=== PATIENT | female | born 1955 | race Caucasian/White ===

== ENCOUNTER 2016-11-19 10:44 | Inpatient (IN) | payer OTHER ==
[~2016-11-19] VITALS: Ht 157.5 cm; Wt 64.0 kg
[~2016-11-19 10:44] MED LIST: AUG500 GTB; BENA40TA54 PO; CALC60OI3 TOP; CLON-379 PO; PRED20TA PO; TRAM1TAB6 PO; TRAM50TA2 PO
--- NOTE | 2016-11-19 11:14 | RADRPT ---
PROCEDURE: Chest x-ray CLINICAL INDICATION: Chest pain TECHNIQUE: Chest single view COMPARISON: 03/05/2013 FINDINGS: The heart is normal in size. The pulmonary vessels are normal in caliber. The lungs are clear. Th e costophrenic angles are sharp. The visualized bony thorax is unremarkable. IMPRESSION: No acute cardiopulmonary disease. RPTAT: HH .Filiberto Schaeffer MD, Date Time Electronically viewed and signed by .Filiberto Schaeffer MD, on 11/19/2016 11:13 .W/
[2016-11-19 11:46] LABS: BASOPHIL # 0.1 10^3/ul (0.0-0.1); BASOPHILS % 0.5 % (0.0-2.0); EOSINOPHILS # 0.1 10^3/ul (0.0-0.5); EOSINOPHILS % 1.3 % (0.0-7.0); HEMATOCRIT 38.4 % (37.0-47.0); LYMPHOCYTES # 1.6 10^3/ul (0.8-2.9); LYMPHOCYTES % 16.4 % (15.0-51.0); MEAN CORPUSCULAR HEMOGLOBIN 26.7 pg (29.0-33.0); MEAN CORPUSCULAR HGB CONC 31.3 g/dl (32.0-37.0); MEAN CORPUSCULAR VOLUME 85.3 fl (82.0-101.0); MEAN PLATELET VOLUME 10.8 fl (7.4-10.4); MONOCYTE # 0.5 10^3/ul (0.3-0.9); MONOCYTES % 4.9 % (0.0-11.0); NEUTROPHIL # 7.6 10^3/ul (1.6-7.5); NEUTROPHILS % 76.6 % (39.0-77.0); PLATELET COUNT 414 10^3/UL (140-415); RED CELL DISTRIBUTION WIDTH 14.7 % (11.5-14.5)
[2016-11-19 11:49] LABS: ANION GAP 11 (8-16); BLOOD UREA NITROGEN 20 mg/dl (7-20); CALCIUM 9.3 mg/dl (8.4-10.2); CARBON DIOXIDE 27 mmol/L (21-31); CHLORIDE 107 mmol/L (97-110); CREATININE 0.96 mg/dl (0.44-1.00); GLUCOSE 129 mg/dl (70-220); POTASSIUM 3.1 mmol/L (3.5-5.1); SODIUM 142 mmol/L (135-144)
[2016-11-19 12:06] LABS: TROPONIN-I < 0.012 ng/ml (0.00-0.12)
[2016-11-19] MEDS ORDERED: ATOR20TA38 PO (12:17)
[2016-11-19] MEDS ORDERED: AMLO5TAB4 PO (12:17)
--- NOTE | 2016-11-19 12:26 | ERA ---
ER Documentation Chief Complaint Date/Time DATE: 11/19/16 TIME: 12:09 Chief Complaint Pt with B leg pain, swelling and redness X 2 days CP since this morning. HPI This is a 61-year-old female with a history of psoriasis, previous stroke with residual right-sided deficits and dysarthria, previous heart attack, hypertension who is presenting with 3 days of fatigue, intermittent chest discomfort with progressive worsening redness, warmth and swelling of her lower extremities bilaterally from the foot to the knee. The patient denies feeling sick recently. The patient denies fever or chills. The patient has had no headache or vision changes. The patient denies lightheadedness or dizziness. She denies nausea or vomiting. The patient has had no chest pain or shortness of breath trouble breathing. The patient denies abdominal pain or changes to bowel movements or urination. The patient has had no new weakness or numbness or tingling to the face or extremities, but she has chronic right-sided hemiplegia. ROS All systems reviewed and are negative except as per history of present illness. Medications Home Meds Reported Medications Atorvastatin Calcium* (Atorvastatin Calcium*) 20 Mg Tablet, 20 MG PO QHS, #30 TAB 11/19/16 Amlodipine Besylate* (Norvasc*) 5 Mg Tablet, 5 MG PO DAILY, TAB 11/19/16 Discontinued Reported Medications Tramadol Hcl/Acetaminophen (Tramadol Hcl/Acetaminophen) 1 Tab Tablet, 1 TAB PO TID 50MG PO TID 03/09/13 Amoxicillin/Clavulanate K (Augmentin) 500 Mg Tab, 500 MG GTB QID, #30 03/09/13 Clonidine Hcl* (Clonidine Hcl*) 0.1 Mg Tab, 0.1 MG PO Q6 Y FOR SBP >150 03/09/13 Benazepril Hcl* (Lotensin*) 40 Mg Tablet, 40 MG PO DAILY 03/09/13 [none] No Conflict Check 09/05/12 Discontinued Scripts Tramadol HCl (Tramadol HCl) 50 Mg Tablet, 50 MG PO Q4 Y for PAIN, #20 TAB Prov:ANA JETER 07/28/15 Calcipotriene* (Calcipotriene*) 0.005%-60 Gm Oint...g., 1 APPLIC TOP BID for 7 Days, TUB Prov:ANA JETER 07/28/15 Prednisone* (Prednisone*) 20 Mg Tab, 40 MG PO DAILY for 4 Days, TAB Prov:ANA JETER 07/28/15 Allergies Allergies: Coded Allergies: No Known Allergies (Verified Allergy, Mild, 11/19/16) PMhx/Soc History of Surgery: Yes (BACK AND NOSE SURGERY, PT NOT SURE WHEN ) Anesthesia Reaction: No Hx Neurological Disorder: Yes (RIGHT SIDED WEAKNESS FROM STROKE) Hx Respiratory Disorders: No (ASTHMA) Hx Cardiac Disorders: Yes (HTN, RIGHT SIDED STROKE) Hx Psychiatric Problems: No Hx Miscellaneous Medical Probl: Yes (psoriasis ) Hx Alcohol Use: No Hx Substance Use: No Hx Tobacco Use: No Smoking Status: Never smoker FmHx Family History: No diabetes Physical Exam Vitals Vital Signs Date Time Temp Pulse Resp B/P Pulse Ox O2 Delivery O2 Flow Rate FiO2 11/19/16 11:30 Nasal Cannula 2 11/19/16 10:47 103 18 196/98 98 Physical Exam Const: No apparent distress, well-developed, well-nourished Head: Atraumatic Eyes: Normal Conjunctiva. Extraocular movements intact. ENT: Normal External Ears, Nose and Mouth. Neck: Full range of motion. ~ No meningismus. Resp: Clear to auscultation bilaterally Cardio: Regular rate and rhythm, no murmurs Abd: Soft, non tender, obese/distended. Normal bowel sounds Skin: No petechiae. Multiple psoriatic lesions. Significant erythema to the BLE from knee to foot Back: No midline or flank tenderness Ext: No cyanosis, or edema Neur: Awake and alert, oriented 4. Cranial nerves intact. Mild Dysarthria. No facial droop. Normal sensation in all extremities. Right hemiplegia. Normal strength on left. Psych: Normal Mood and Affect Result Diagram: 11/19/16 1115 11/19/16 1115 Results 24 hrs Laboratory Tests Test 11/19/16 11:15 White Blood Count 10.010^3/ul Red Blood Count 4.5010^6/ul Hemoglobin 12.0g/dl Hematocrit 38.4% Mean Corpuscular Volume 85.3fl Mean Corpuscular Hemoglobin 26.7pg Mean Corpuscular Hemoglobin Concent 31.3g/dl Red Cell Distribution Width 14.7% Platelet Count 93457^3/UL Mean Platelet Volume 10.8fl Neutrophils % 76.6% Lymphocytes % 16.4% Monocytes % 4.9% Eosinophils % 1.3% Basophils % 0.5% Nucleated Red Blood Cells % 0.0/100WBC Neutrophils # 7.610^3/ul Lymphocytes # 1.610^3/ul Monocytes # 0.510^3/ul Eosinophils # 0.110^3/ul Basophils # 0.110^3/ul Nucleated Red Blood Cells # 0.010^3/ul Sodium Level 142mmol/L Potassium Level 3.1mmol/L Chloride Level 107mmol/L Carbon Dioxide Level 27mmol/L Anion Gap 11 Blood Urea Nitrogen 20mg/dl Creatinine 0.96mg/dl Glucose Level 129mg/dl Calcium Level 9.3mg/dl Troponin I < 0.012ng/ml B-Type Natriuretic Peptide 229PG/ML Current Medications Medications (Trade) Dose Ordered Sig/Aliza Route PRN Reason Start Time Stop Time Status Last Admin Dose Admin Vancomycin HCl/ Sodium Chloride (Vancocin/NS) 250 ml @ 83.333 mls/ hr ONCE ONCE IVPB 11/19/16 12:30 11/19/16 15:29 11/19/16 12:34 Morphine Sulfate (morphine) 4 mg ONCE STAT IV 11/19/16 13:18 11/19/16 13:20 DC 11/19/16 13:26 Procedures/MDM MDM Patient's presentation warrants further investigation. I am concerned of significant cellulitis in this patient. She does have a history of psoriasis, which is a nidus of infection. She has edema, warmth and a well demarcated border of erythema in her bilateral lower extremities. LABS The patient's blood work was obtained and reviewed. The patient seemed shows no leukocytosis or left shift. The patient is afebrile, and I do not suspect a systemic infection. The patient is not anemic today. The patient's platelet count is unremarkable. The patient's CMP shows mild hypokalemia but no other signs of metabolic or electrolyte abnormality. Her BNP is mildly elevated, but not consistent with an overt acute heart failure exacerbation. Troponin is negative. The patient has normal renal and hepatic function testing. EKG EKG read by me: Rate/Rhythm: Regular rate and rhythm at a rate of 84 Intervals: Normal [place]: Normal Ischemic changes: Q waves in leads III and aVF that could be consistent with older inferior ischemia. No repolarization abnormalities concerning for STEMI. Impression: No evidence of acute ischemia or arrhythmia IMAGING CXR FINDINGS: The heart is normal in size. The pulmonary vessels are normal in caliber. The lungs are clear. The costophrenic angles are sharp. The visualized bony thorax is unremarkable. IMPRESSION: No acute cardiopulmonary disease. Electronically viewed and signed by .Filiberto Schaeffer MD, on 11/19/2016 11:13 BLE Venous Doppler FINDINGS: There is normal compressibility and flow within the bilateral common femoral, femoral, posterior tibial, peroneal and popliteal veins. IMPRESSION: No sonographic evidence for deep venous thrombosis. Electronically viewed and signed by Physician Juan J on 11/19/2016 13 :35 TREATMENT/DISPOSITION The patient is presenting with symptoms concerning for cellulitis. She did receive morphine in the emergency department for the pain that she was having in her legs. A venous Doppler study was performed to evaluate for DVT, as she is nonambulatory at baseline. It was negative for venous thrombosis. The patient clinically does have cellulitis, greater than 50% of each leg. She will be given vancomycin in the emergency department after blood cultures are sent off. Admission will be required. The patient also endorsed mild chest discomfort that has been intermittent over the last few days. Her cardiac workup at this time is negative. The patient was initially hypertensive in the emergency department, but this resolved on its own once he settled down in her bed in the ER. She was also initially tachycardic, but this too improved on its own. Her vital signs were otherwise stable while in the emergency department. The patient will be admitted to the hospital for further evaluation of her cellulitis. The patient will be admitted to the panel physician, Dr. Ross, as per her insurance status. Dr. Ross accepted the patient at 13:51 p.m. on November 19, 2016. Departure Diagnosis: Primary Impression: Psoriasis Additional Impressions: Cellulitis Qualified Code: L03.119 - Cellulitis of lower extremity, unspecified laterality Chest pain Qualified Code: R07.9 - Chest pain, unspecified type Condition: BOOGIE Nuñez MD Nov 19, 2016 12:25
[2016-11-19] MEDS ORDERED: VANCOMYCIN 1.25 GM in SOD CHLORIDE 0.9% 250 ML IVPB ONE (12:30)
[2016-11-19] MEDS ORDERED: morphine 4 MG/ML VIAL IV STA (13:18)
[2016-11-19 13:20] VITALS: BP 198/80; RESP 20
--- NOTE | 2016-11-19 13:35 | RADRPT ---
PROCEDURE: US Lower extremity Venous. CLINICAL INDICATION: Edema, swelling TECHNIQUE: Multiple sonographic images of the bilateral lower extremity deep venous system was obt ained utilizing grayscale, color-flow, compressive sonography and doppler imaging with augmentation. The images were reviewed on a PACS workstation. COMPARISON: 09/05/12 FINDINGS: There is normal compressibility and flow within the bilateral common femoral, femoral, posterior tib ial, peroneal and popliteal veins. IMPRESSION: No sonographic evidence for deep venous thrombosis. RPTAT: QQ Physician Juan J Date Time Electronically viewed and signed by Physician Juan J on 11/19/2016 13:35 /
[2016-11-19] MEDS ORDERED: SOD CHLORIDE 0.9% 1,000 ML IV SCH (13:53)
[2016-11-19] MEDS ORDERED: ACETAMINOPHEN 325 MG TAB PO PRN (14:00)
[2016-11-19] MEDS ORDERED: ONDANSETRON 4 MG INJ IV PRN (14:00)
[2016-11-19 14:50] VITALS: PULSE 80
[2016-11-19 16:12] VITALS: Ht 157.5 cm; Wt 64.0 kg
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
[2016-11-19] MEDS ORDERED: POTASSIUM CHLORIDE (SR) 20 MEQ TAB PO STA (16:23)
[2016-11-19] MEDS ORDERED: NACL 0.9% 3 ML SYG IV SCH (16:30)
[2016-11-19] MEDS ORDERED: HYDROCODONE/APAP (5/325) TAB PO PRN (16:30)
[2016-11-19] MEDS ORDERED: VANCOMYCIN IV PER PHARMACY XX SCH (16:30)
[2016-11-19 16:59] LABS: CREATINE KINASE 51 IU/L (23-200)
[2016-11-19 17:12] LABS: CK-MB 0.45 ng/ml (0.0-2.4)
[2016-11-19 17:19] LABS: TROPONIN-I < 0.012 ng/ml (0.00-0.12)
[2016-11-19] MEDS ORDERED: ACCU-CHEK XX SCH (17:35)
[2016-11-19 19:48] VITALS: BP 140/67; RESP 16
[2016-11-19] MEDS: ACCU-CHEK XX SCH (21:00)
[2016-11-19] MEDS: VANCOMYCIN 750 MG in SOD CHLORIDE 0.9% 150 ML IVPB SCH (21:11)
[2016-11-19 23:50] LABS: CREATINE KINASE 44 IU/L (23-200)
[2016-11-20 00:02] LABS: CK-MB 0.42 ng/ml (0.0-2.4)
[2016-11-20 00:10] LABS: TROPONIN-I < 0.012 ng/ml (0.00-0.12)
[2016-11-20 02:05] VITALS: BP 141/70; RESP 16
[2016-11-20] MEDS ORDERED: ONDANSETRON 4 MG INJ IV PRN (03:00)
[2016-11-20] MEDS: morphine 4 MG/ML VIAL IV PRN ×4 (03:03→20:41)
[2016-11-20 06:58] LABS: BASOPHILS % 0.2 % (0.0-2.0); EOSINOPHILS # 0.1 10^3/ul (0.0-0.5); EOSINOPHILS % 0.9 % (0.0-7.0); HEMATOCRIT 35.8 % (37.0-47.0); HEMOGLOBIN 11.1 g/dl (12.0-16.0); LYMPHOCYTES # 0.9 10^3/ul (0.8-2.9); LYMPHOCYTES % 7.7 % (15.0-51.0); MEAN CORPUSCULAR HEMOGLOBIN 26.7 pg (29.0-33.0); MEAN CORPUSCULAR VOLUME 86.1 fl (82.0-101.0); MEAN PLATELET VOLUME 10.6 fl (7.4-10.4); MONOCYTE # 0.5 10^3/ul (0.3-0.9); MONOCYTES % 4.5 % (0.0-11.0); NEUTROPHIL # 10.3 10^3/ul (1.6-7.5); NEUTROPHILS % 86.4 % (39.0-77.0); PLATELET COUNT 375 10^3/UL (140-415); RED BLOOD COUNT 4.16 10^6/ul (4.20-5.40); RED CELL DISTRIBUTION WIDTH 14.7 % (11.5-14.5); WHITE BLOOD COUNT 11.9 10^3/ul (4.8-10.8)
[2016-11-20] MEDS: ACCU-CHEK XX SCH ×4 (07:30→20:45)
[2016-11-20 07:44] LABS: ALBUMIN 3.6 g/dl (3.3-4.9); ALBUMIN/GLOBULIN RATIO 0.97; BILIRUBIN,INDIRECT 0.2 mg/dl (0-1.1); BILIRUBIN,TOTAL 0.2 mg/dl (0.2-1.3); CALCIUM 8.4 mg/dl (8.4-10.2); CREATININE 0.65 mg/dl (0.44-1.00); POTASSIUM 3.4 mmol/L (3.5-5.1); TOTAL PROTEIN 7.3 g/dl (6.1-8.1)
[2016-11-20 08:00] VITALS: BP 138/60; RESP 19
[2016-11-20] MEDS: ENOXAPARIN 40 MG/0.4 ML SYG SC SCH (08:14)
[2016-11-20] MEDS: TRIAMCINOLONE ACET 0.1% 15 GM OINT TOP SCH ×3 (08:15→20:41)
[2016-11-20] MEDS ORDERED: INFLUENZA VIRUS VACCINE 0.5 ML SYG IM* ONE (09:00)
[2016-11-20] MEDS: VANCOMYCIN 750 MG in SOD CHLORIDE 0.9% 150 ML IVPB SCH ×2 (09:47→22:07)
[2016-11-20] MEDS ORDERED: POTASSIUM CHLORIDE (SR) 20 MEQ TAB PO STA (11:12)
[2016-11-20 14:00] VITALS: BP 143/84; RESP 18
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
[2016-11-20 19:45] VITALS: BP 126/64; RESP 16
[2016-11-21 02:12] VITALS: BP 132/64; RESP 18
[2016-11-21] MEDS: morphine 4 MG/ML VIAL IV PRN (05:13)
[2016-11-21] MEDS: ACCU-CHEK XX SCH ×2 (07:30→11:30)
[2016-11-21 08:11] VITALS: RESP 20
[2016-11-21] MEDS: TRIAMCINOLONE ACET 0.1% 15 GM OINT TOP SCH ×2 (08:35→12:56)
[2016-11-21] MEDS: ENOXAPARIN 40 MG/0.4 ML SYG SC SCH (08:36)
[2016-11-21 09:23] VITALS: BP 172/77
[2016-11-21] MEDS ORDERED: VANCOMYCIN 1 GM in NS 250 ML IVPB SCH (10:00)
[2016-11-21] MEDS ORDERED: SULF1TAB31 PO (14:11)
[2016-11-21] MEDS ORDERED: KEN1O TOP (14:11)
--- NOTE | 2016-11-21 14:13 | PDOCDIS ---
Discharge Instructions DIAGNOSIS Discharge Diagnosis Cellulitis, psoriasis CONDITION Patient Condition: Good HOME CARE INSTRUCTIONS: Special Diet: DIABETIC CARB CONTROL DIET FOLLOW UP/APPOINTMENTS Follow-up Plan You have been prescribed an antibiotic called Bactrim to take for 4 more days for possible infection of the psoriasis lesions on your skin You have also been prescribed an anti-inflammatory cream to apply to your psoriasis lesions. It is very important that you see your motorcycle delivery driver as soon as possible for further care KELSEY CLARK MD Nov 21, 2016 14:13
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
== END 2016-11-21 16:10 | disposition home or self-care (01) | DRG 603 ==
LOC: E/R 10:44 → PP2 13:53
PROVIDERS: ADMIT Hospitalist; ATTEND Hospitalist
DX: L03.116 Cellulitis of left lower limb (principal); N17.9 Acute kidney failure, unspecified; I69.351 Hemiplegia and hemiparesis following cerebral infarction affecting right dominant side; L40.9 Psoriasis, unspecified; L03.115 Cellulitis of right lower limb; E87.6 Hypokalemia; I69.322 Dysarthria following cerebral infarction; I25.2 Old myocardial infarction; Z99.3 Dependence on wheelchair; I10 Essential (primary) hypertension; Z87.891 Personal history of nicotine dependence
CPT/HCPCS: 36415; 71010; 80048; 80053; 80202; 82550; 82553; 82962; 83880; 84484; 85025; 87040; 90686; 93005; 93970; 96374; 96375; J1650; J2270; J3370; J7030; J7050

== ENCOUNTER 2017-12-18 16:34 | Inpatient (IN) | END 2017-12-25 20:30 | disposition home or self-care (01) | DRG 603 ==